=== PATIENT | female | born 1990 | race Caucasian/White ===

== ENCOUNTER 2016-12-16 18:41 | Emergency (ER) | payer SELFPAY ==
[~2016-12-16 18:41] MED LIST: BACTRIM 400-801 TA1; ZOFRAN
== END 2016-12-16 18:45 | disposition home or self-care (01) ==
LOC: SED 18:41
DX: J06.9 Acute upper respiratory infection, unspecified (principal); Z88.8 Allergy status to other drugs, medicaments and biological substances
CPT/HCPCS: 99282

== ENCOUNTER 2017-03-30 13:16 | Emergency (ER) | payer SELFPAY | END 2017-03-30 13:50 | disposition home or self-care (01) | LOC: SED 13:16 | DX: R21 Rash and other nonspecific skin eruption (principal); Z88.8 Allergy status to other drugs, medicaments and biological substances | CPT/HCPCS: 99282 ==